=== PATIENT | female | born 1975 ===

== ENCOUNTER → 2021-05-11 12:22 | Outpatient (CLI) | payer BC, SELFPAY ==
--- NOTE | ~2021-05-11 | MR_ITS ---
EXAMINATION: MR knee RT wo con DATE: 05/11/2021 13:04 INDICATION: Chronic right knee pain TECHNIQUE: Magnetic resonance imaging (MRI) of the right knee was performed without intravenous contr ast. Sequences included coronal PD-weighted FSE, coronal PD-weighted FS FSE, sagittal T2-weighted FS E, sagittal PD-weighted FS FSE and axial PD weighted fat saturated FSE. COMPARISON: None. FINDINGS: Medial compartment: Mild chondral surface regularity along the anterior weightbearing medial femoral condyle. Articular c artilage is normal at the medial tibial plateau. Lateral compartment: Lateral meniscus is normal. Articular cartilage is normal. Patellofemoral compartment: Chondral fissuring involving greater than 50% of the cartilage thickness but without degenerative sub chondral changes at both the medial and lateral patellar facets. Partial-thickness chondral ulceratio n and additional deep fissuring also without degenerative subchondral changes along the inferior aspe ct of the trochlear groove and medial trochlea. Ligaments and tendons: Anterior and posterior cruciate ligaments are normal. The medial collateral ligament complex is madelyn l. Mild thickening of the proximal fibular collateral ligament without surrounding edema consistent w ith mild scarring related to chronic sprain. The extensor mechanism is normal. The visualized medial and lateral hamstring tendons as well as the iliotibial band are normal. Fluid: Small right knee joint effusion at the suprapatellar pouch. No loose osteochondral bodies identified. Osseous/other: Small low signal intensity bone island at the posterior lateral femoral condyle. Normal marrow signal . No fracture or abnormal marrow replacing process. IMPRESSION: 1. Mild osteoarthritis with shallow chondral surface irregularity along the anterior weightbearing me dial femoral condyle and more extensive and deeper chondral ulceration and fissuring in the patellofe moral compartment. Reviewed, dictated and finalized at location A. IMPRESSION: 1. Mild osteoarthritis with shallow chondral surface irregularity along the ant erior weightbearing medial femoral condyle and more extensive and deeper chondr al ulceration and fissuring in the patellofemoral compartment.
== END ==
PROVIDERS: Visit Provider Orthopaedic Surgery
DX: M17.11 Unilateral primary osteoarthritis, right knee (principal)
CPT/HCPCS: 73721